=== PATIENT | male | born 1990 | race Caucasian/White ===

== ENCOUNTER 2017-12-10 16:15 | Emergency (ER) | payer MEDICAID ==
[~2017-12-10] VITALS: Ht 162.6 cm; Wt 85.9 kg
[2017-12-10 16:37] VITALS: Ht 162.6 cm; Wt 85.9 kg
[2017-12-10] MEDS ORDERED: LYRICA150 MG PO (16:38)
[2017-12-10] MEDS ORDERED: CYCLOBENZAPRINE10 MG PO (16:39)
[2017-12-10] MEDS ORDERED: DESERYL100 MG PO (16:39)
[2017-12-10] MEDS ORDERED: MOBIC7.5 MG PO (16:39)
[2017-12-10] MEDS ORDERED: ZANTAC150 MG PO (16:39)
[2017-12-10 18:40] LABS: APPEARANCE CLEAR (CLEAR); BILIRUBIN NEGATIVE (NEGATIVE); COLOR YELLOW (YELLOW); GLUCOSE NEGATIVE (NEGATIVE); KETONE NEGATIVE (NEGATIVE); NITRITE NEGATIVE (NEGATIVE); PROTEIN NEGATIVE (NEGATIVE); SPECIFIC GRAVITY 1.015 (1.005-1.020); UROBILINOGEN NORMAL (NORMAL)
[2017-12-10] MEDS ORDERED: TYLENOL W/CODEI1 TAB PO (20:31)
[2017-12-10] MEDS ORDERED: VALIUM 2 MG TAB2 MG PO (20:31)
[2017-12-10 20:39] VITALS: BP 135/85
== END 2017-12-10 20:40 | disposition home or self-care (01) ==
LOC: D.ER 16:15
PROVIDERS: Family Medicine
DX: M54.41 Lumbago with sciatica, right side (principal)

== ENCOUNTER 2019-02-02 14:31 | Emergency (ER) | payer MEDICAID ==
[~2019-02-02] VITALS: Ht 162.6 cm; Wt 89.5 kg
[~2019-02-02 14:31] MED LIST: CYCLOBENZAPRINE10 MG PO; DESERYL100 MG PO; LYRICA150 MG PO; MOBIC7.5 MG PO; TYLENOL W/CODEI1 TAB PO; VALIUM 2 MG TAB2 MG PO; ZANTAC150 MG PO
[2019-02-02 14:37] VITALS: Ht 162.6 cm; Wt 89.5 kg
[2019-02-02] MEDS ORDERED: OXYCONTIN15 MG PO (14:41)
[2019-02-02] MEDS ORDERED: CYCLOBENZAPRINE10 MG PO (16:15)
[2019-02-02] MEDS ORDERED: IBUPROFEN800 MG PO (16:15)
[2019-02-02] MEDS ORDERED: ACETAMINOPHEN500 M1 PO (16:15)
[2019-02-02 17:04] VITALS: BP 137/76
== END 2019-02-02 17:05 | disposition home or self-care (01) ==
LOC: D.ER 14:31
DX: M25.512 Pain in left shoulder (principal)

== ENCOUNTER 2019-02-10 14:57 | Emergency (ER) | payer MEDICAID ==
[~2019-02-10] VITALS: Ht 162.6 cm; Wt 90.0 kg
[~2019-02-10 14:57] MED LIST changes: +ACETAMINOPHEN500 M1 PO; +IBUPROFEN800 MG PO; +OXYCONTIN15 MG PO
[2019-02-10 15:32] VITALS: Ht 162.6 cm; Wt 90.0 kg
[2019-02-10] MEDS ORDERED: CELEXA40 MG PO (15:36)
[2019-02-10] MEDS ORDERED: ADDERALL 20 MG20 M1 PO (15:37)
[2019-02-10] MEDS ORDERED: FLUTICASONE PRO16 GM NASAL (17:08)
[2019-02-10] MEDS ORDERED: ZPAK PO (17:08)
[2019-02-10 18:51] VITALS: BP 134/76
== END 2019-02-10 18:51 | disposition home or self-care (01) ==
LOC: D.ER 14:57
DX: M25.511 Pain in right shoulder (principal); J01.90 Acute sinusitis, unspecified

== ENCOUNTER 2019-03-10 18:31 | Emergency (ER) | payer MEDICAID ==
[~2019-03-10] VITALS: Ht 162.6 cm; Wt 90.9 kg
[~2019-03-10 18:31] MED LIST changes: +ADDERALL 20 MG20 M1 PO; +CELEXA40 MG PO; +FLUTICASONE PRO16 GM NASAL; +ZPAK PO
[2019-03-10 18:37] VITALS: Ht 162.6 cm; Wt 90.9 kg
[2019-03-10] MEDS ORDERED: RANITIDINE HCL150 M1 PO (18:41)
[2019-03-10] MEDS ORDERED: DOXYCYCLINE HY100 M2 PO (18:42)
[2019-03-10 19:23] LABS: BASOPHILS 0.2 % (0-2); EOSINOPHILS 1.5 % (0-7); HEMATOCRIT 42.9 % (42.0-54.0); HEMOGLOBIN 14.7 g/dL (13.5-17.5); IMMATURE GRANULOCYTES 0.4 % (0-5); LYMPHOCYTES 22.8 % (15-50); MCH 30.2 pg (26.0-34.0); MCHC 34.3 g/dL (31.0-37.0); MCV 88.1 fL (80.0-100.0); MEAN PLATELET VOLUME 10.1 fL (7.4-10.4); MONOCYTES 7.4 % (2-11); NEUTROPHILS 67.7 % (40-80); PLATELET COUNT 237 10x3/uL (130-400); RBC 4.87 10x6/uL (4.20-6.10); RDW 13.2 % (11.5-14.5); WBC 8.1 10x3/uL (4.8-10.8)
[2019-03-10 19:42] LABS: ALKALINE PHOSPHATASE 133 U/L (46-116); ALT (SGPT) 92 U/L (10-68); AMYLASE - SERUM 170 U/L (25-115); BILIRUBIN - TOTAL 0.79 mg/dL (0.2-1.3); CALC OSMOLALITY 280 mosm/kg (275-300); CALCIUM 8.9 mg/dL (8.5-10.1); CARBON DIOXIDE 28.7 mmol/L (21.0-32.0); CHLORIDE - SERUM 103 mmol/L (98-107); CREATININE - SERUM 0.9 mg/dL (0.6-1.3); GLUCOSE 88 mg/dL (74-106); POTASSIUM - SERUM 3.2 mmol/L (3.5-5.1); SODIUM 141 mmol/L (136-145); UREA NITROGEN 14 mg/dL (7-18); eGFR NON AFRICAN AMERICAN > 90 mL/min (90-120)
[2019-03-10 19:46] LABS: LIPASE 1861 U/L (73-393)
[2019-03-10] MEDS ORDERED: TYLENOL W/CODEI1 TAB PO (21:26)
[2019-03-10] MEDS ORDERED: CLEOCIN HCL300 MG PO (21:26)
[2019-03-10 22:31] VITALS: BP 134/90
== END 2019-03-10 22:31 | disposition home or self-care (01) ==
LOC: D.ER 18:31
PROVIDERS: Family Medicine
DX: L03.311 Cellulitis of abdominal wall (principal)